=== PATIENT | female | born 1995 | race Caucasian/White ===

== ENCOUNTER 2019-04-30 09:46 | Emergency (ER) | payer OTHER ==
[2019-04-30 10:07] VITALS: BP 130/76
[2019-04-30] MEDS ORDERED: Metoclopramide 10 MG/2 ML SDV IVPUSH ONE (10:28)
[2019-04-30] MEDS ORDERED: HYDROmorphone 0.5 MG/0.5 ML Syringe IVPUSH ONE (10:29)
[2019-04-30] MEDS ORDERED: Ketorolac 30 MG/ML SDV IVPUSH SCH (10:30)
[2019-04-30] MEDS ORDERED: Dextrose 5%-0.9% NaCl 1,000 ML IV SCH (10:30)
--- NOTE | 2019-04-30 10:35 | EDM.PDOC ---
ED HPI GENERAL MEDICAL PROBLEM - General Chief Complaint: Headache Stated Complaint: HEADACHE Time Seen by Provider: 04/30/19 10:30 Source of Information: Reports: Patient History Limitations: Reports: No Limitations - History of Present Illness INITIAL COMMENTS - FREE TEXT/NARRATIVE: 24-year-old female presents to the ED with a generalized headache. She states she was at a wedding dance on Sunday, April 26 and did drink alcohol to excess. She developed a headache Sunday and this is persisted up until this time. No associated vomiting but some mild nausea. No change in visual acuity. She states she has chronic cervical neck pain and often sees the chiropractor on a monthly basis for adjustments. No fever no chills. Onset: Gradual Onset Date: 04/27/19 Duration: Day(s):, Constant, Waxing/Waning Location: Reports: Head Quality: Reports: Ache, Throbbing Severity: Moderate Improves with: Reports: None Worsens with: Reports: None Context: Denies: Activity, Exercise, Lifting, Sick Contact, Trauma, Other Associated Symptoms: Denies: Confusion, Chest Pain, Cough, Diaphoresis, Fever/ Chills, Headaches, Loss of Appetite, Malaise, Nausea/Vomiting, Rash, Seizure, Shortness of Breath, Syncope, Weakness Treatments VALIDATION TECHNICIAN: Reports: Acetaminophen Headache Pain Score (Numeric/FACES): 3 - Related Data Allergies Allergy/AdvReac Type Severity Reaction Status Date / Time No Known Allergies Allergy Verified 04/30/19 09:59 Home Meds: Home Meds Levothyroxine [Synthroid] 112 mcg PO ACBREAKFAST 04/30/19 [History] Past Medical History - Past Health History Medical/Surgical History: Denies Medical/Surgical History Cardiovascular History: Reports: None Respiratory History: Reports: None Gastrointestinal History: Reports: None Genitourinary History: Reports: None 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 (See Below) Other INSULATION BOARD COATER OPERATOR History: LEEP for HPV Musculoskeletal History: Reports: Neck Pain, Chronic Neurological History: Reports: Migraines Psychiatric History: Reports: None Endocrine/Metabolic History: Reports: Hypothyroidism, Obesity/BMI 30+ Hematologic History: Reports: None Immunologic History: Reports: None Oncologic (Cancer) History: Reports: None Dermatologic History: Reports: None - Infectious Disease History Infectious Disease History: Reports: Chicken Pox - Past Surgical History HEENT Surgical History: Reports: LASIK, Oral Surgery, Tonsillectomy Social & Family History - Family History Family Medical History: Noncontributory HEENT: Reports: Impaired Vision Cardiac: Reports: Heart Valve Replacement, [place] Respiratory: Reports: None GI: Reports: None : Reports: None OBGYN: Reports: None Musculoskeletal: Reports: Neck Pain, Chronic, Other (See Below) Endocrine/Metabolic: Reports: Hypothyroidism Oncologic: Reports: Renal - Tobacco Use Smoking Status *Q: Never Smoker - Caffeine Use Caffeine Use: Reports: Coffee - Recreational Drug Use Recreational Drug Use: No - Living Situation & Occupation Living situation: Reports: Single, with Significant Other Occupation: Employed ED ROS GENERAL - Review of Systems Review Of Systems: See Below Constitutional: Reports: No Symptoms HEENT: Reports: No Symptoms Respiratory: Reports: No Symptoms Cardiovascular: Reports: No Symptoms Endocrine: Reports: No Symptoms GI/Abdominal: Reports: No Symptoms : Reports: No Symptoms Musculoskeletal: Reports: No Symptoms Skin: Reports: No Symptoms Neurological: Reports: No Symptoms Psychiatric: Reports: No Symptoms Hematologic/Lymphatic: Reports: No Symptoms Immunologic: Reports: No Symptoms - Physical Exam Exam: See Below Exam Limited By: No Limitations General Appearance: Alert, WD/WN, Anxious, Mild Distress, Other (Patient is quite anxious as she visited with a virtual Dr. on Internet and was told that she may have meningitis and that she should seek medical care. Patient has no signs or symptoms of meningitis and was reassured in this regard.) Eye Exam: Bilateral Eye: Normal Inspection, PERRL Throat/Mouth: Normal Inspection, Normal Lips, Normal Teeth, Normal Oropharynx Head Exam: Atraumatic, Normocephalic Neck: Normal Inspection, Supple, Non-Tender, Full Range of Motion. No: Lymphadenopathy (L), Lymphadenopathy (R) Respiratory/Chest: No Respiratory Distress, Lungs Clear, Normal Breath Sounds Cardiovascular: Normal Peripheral Pulses, No Edema, No Gallop, No Murmur, No Rub , Tachycardia (Resting tachycardia of 130/m which came down to 111 at this time. ) GI/Abdominal: Normal Bowel Sounds, Soft, Non-Tender, No Organomegaly, No Abnormal Bruit, No Mass, Pelvis Stable Neuro Exam (Abbreviated): Alert, Oriented, CN II-XII Intact, Normal Cognition, Normal Gait, No Motor/Sensory Deficits Extremities: Normal Inspection, Normal Range of Motion, Non-Tender, No Pedal Edema, Normal Capillary Refill Psychiatric: Normal Affect, Normal Mood Skin Exam: Warm, Dry, Intact, Normal Color, No Rash Course - Vital Signs Last Recorded V/S: Last Vital Signs Temp 36.2 C 04/30/19 10:05 Pulse 137 H 04/30/19 10:05 Resp 18 04/30/19 10:05 BP 130/76 04/30/19 10:05 Pulse Ox 100 04/30/19 10:05 - Orders/Labs/Meds Orders: Active Orders 24 hr Category Date Time Status Dextrose 5%-0.9% NaCl [Dextrose 5%-Normal Saline] 1,000 Med 04/30/19 10:30 Active ml IV ASDIRECTED Ketorolac [Toradol] Med 04/30/19 10:30 Active 30 mg IVPUSH ONETIME Medication Orders Dextrose/Sodium Chloride (Dextrose 5%-Normal Saline) 1,000 mls @ 999 mls/hr IV ASDIRECTED HECTOR Last Admin: 04/30/19 10:40 Dose: 999 mls/hr Ketorolac Tromethamine (Toradol) 30 mg IVPUSH ONETIME HECTOR Last Admin: 04/30/19 10:39 Dose: 30 mg Meds: Medications Generic Name Dose Route Start Last Admin Trade Name Freq PRN Reason Stop Dose Admin Dextrose/Sodium Chloride 1,000 mls @ 999 mls/hr 04/30/19 10:30 04/30/19 10:40 Dextrose 5%-Normal Saline IV 999 mls/hr ASDIRECTED HECTOR Administration Ketorolac Tromethamine 30 mg 04/30/19 10:30 04/30/19 10:39 Toradol IVPUSH 30 mg ONETIME HECTOR Administration Discontinued Medications Generic Name Dose Route Start Last Admin Trade Name Freq PRN Reason Stop Dose Admin Hydromorphone HCl 0.5 mg 04/30/19 10:29 04/30/19 10:40 Dilaudid IVPUSH 04/30/19 10:30 0.5 mg ONETIME ONE Administration Metoclopramide HCl 7.5 mg 04/30/19 10:28 04/30/19 10:38 Reglan IVPUSH 04/30/19 10:29 7.5 mg ONETIME ONE Administration - Radiology Interpretation Free Text/Narrative:: 24-year-old female presents to the ED with a generalized headache. Said the headache for the last 3-1/2 days. Associated mild nausea but no vomiting. She states she can eat okay. She presents with a tachycardia of 1 37/m. She states she visited with silvia rivera which means Internet Dr. hill toward her that she may have meningitis which of course provoked panic and the patient. Patient has no signs or symptoms of meningitis. She does have diffuse tenderness on palpation throughout the cervical neck bones and paraspinal musculature which is likely the cause of her tension-type headache. Neuro exam is completely normal. Plan IV normal saline at open. Given Toradol 30 mg IV and Dilaudid 0.5mg with Reglan 7.5 mg IV for pain relief. - Re-Assessments/Exams Free Text/Narrative Re-Assessment/Exam: 04/30/19 11:12 headache is much improved. Heart rate is slowly coming down Still 107. She's reports that she has had Holter monitor the past because of tachyca and always runs at a little higher rate than normal. No abnormalities were otherwise identified on the Holter monitor. Will give her the remainder of the liter of IV fluids Departure - Departure Time of Disposition: 11:40 Disposition: Home, Self-Care 01 Condition: Fair Clinical Impression: Tension-type headache Headache Qualifiers: Headache type: unspecified Headache chronicity pattern: acute headache Intractability: not intractable Qualified Code(s): R51 - Headache - Discharge Information *PRESCRIPTION DRUG MONITORING PROGRAM REVIEWED*: Not Applicable *COPY OF PRESCRIPTION DRUG MONITORING REPORT IN PATIENT MONI: Not Applicable Instructions: Tension Headache, Adult, [id number] Referrals: Francisca Hameed PA-C [Primary Care Provider] - Forms: ED Department Discharge Additional Instructions: Evaluation the emergency room today in regards to a diffuse headache that you' ve had for the last 2-1/2-3 days. Neuro exam is otherwise completely normal. No associated fever chills or vomiting. Mild intermittent nausea reported. Heart rate was in the 130s when you came into the ED due to apprehension after being told on the Internet that you may have meningitis. You have no signs or symptoms of meningitis. Current headache is tension type in origin and is most likely coming from your neck. You were treated in the ED with IV fluids and medication Toradol 30 mg with Reglan 7.5 mg and Dilaudid 0.5 mg for headache relief. Continue Motrin 60 mg every 6 hours needed for inflammation in your neck and follow-up with chiropractor when able. - My Orders Last 24 Hours: My Active Orders 04/30/19 10:30 Dextrose 5%-0.9% NaCl [Dextrose 5%-Normal Saline] 1,000 ml IV ASDIRECTED Ketorolac [Toradol] 30 mg IVPUSH ONETIME - Assessment/Plan Last 24 Hours: My Active Orders 04/30/19 10:30 Dextrose 5%-0.9% NaCl [Dextrose 5%-Normal Saline] 1,000 ml IV ASDIRECTED Ketorolac [Toradol] 30 mg IVPUSH ONETIME
== END 2019-04-30 11:50 | disposition home or self-care (01) ==
LOC: JD.ED 09:46
DX: G44.209 Tension-type headache, unspecified, not intractable (principal)
CPT/HCPCS: 96361; 96374; 96375; 99283; J1170; J1885; J2765; J7042; 99284

== ENCOUNTER 2022-03-27 16:35 | Inpatient (IN) | payer OTHER ==
[2022-03-27] MEDS ORDERED: Ondansetron 4 MG/2 ML SDV IVPUSH PRN (16:38)
[2022-03-27] MEDS ORDERED: Sodium Chloride 0.9% 10 ML Syringe FLUSH PRN (16:38)
[2022-03-27] MEDS ORDERED: Nalbuphine HCl 10 MG/ 1ML Amp IVPUSH PRN (16:38)
[2022-03-27] MEDS ORDERED: Oxytocin/Lactated Ringers 10 UNIT/1,000 ML BAG IV SCH ×2 (16:45)
[2022-03-27] MEDS: Misoprostol 25 MCG (1/4 of 100 MCG) Tab VAG PRN ×2 (17:54→22:11)
[2022-03-27] MEDS ORDERED: fentaNYL 100 MCG/2 ML SDV EPIDUR PRN (20:57)
[2022-03-27] MEDS ORDERED: diphenhydrAMINE 50 MG/ML SDV IVPUSH PRN (20:57)
[2022-03-27] MEDS ORDERED: ePHEDrine 50 MG/ML SDV IVPUSH PRN (20:57)
[2022-03-27] MEDS: Sodium Chloride 0.9% 10 ML Syringe FLUSH SCH (23:42)
[2022-03-28] MEDS ORDERED: Bupivacaine 0.25% 10 ML SDV ONE
[2022-03-28] MEDS ORDERED: Misoprostol 200 MCG Tab ONE ×3
[2022-03-28] MEDS ORDERED: Methylergonovine 0.2 MG/1 ML Amp ONE
[2022-03-28] MEDS: Misoprostol 25 MCG (1/4 of 100 MCG) Tab VAG PRN (03:15)
[2022-03-28] MEDS ORDERED: Levothyroxine 112 MCG Tab PO SCH (06:00)
[2022-03-28] MEDS: Lactated Ringers 1,000 ML IV SCH ×4 (07:22→23:30)
[2022-03-28] MEDS: Bupivacaine/fentaNYL/NS 100 ML Bag EPIDUR PRN ×2 (14:04→21:20)
[2022-03-28] MEDS ORDERED: Oxytocin/Lactated Ringers 20 UNIT/1,000 ML BAG IV SCH (18:00)
[2022-03-28] MEDS: Sodium Chloride 0.9% 10 ML Syringe FLUSH SCH (19:18)
[2022-03-28] MEDS ORDERED: Carboprost Tromethamine 250 MCG/1 ML Amp ONE (22:30)
[2022-03-28] MEDS ORDERED: Methylergonovine 0.2 MG/1 ML Amp IM STA (22:55)
[2022-03-28] MEDS ORDERED: Misoprostol 200 MCG Tab PO STA (22:55)
[2022-03-28] MEDS ORDERED: Carboprost Tromethamine 250 MCG/1 ML Amp IM ONE (22:55)
[2022-03-28] MEDS ORDERED: ceFAZolin 2 GM in Sodium Chloride 0.9% 50 ML IV ONE (22:56)
[2022-03-28] MEDS ORDERED: Witch Hazel Medicated Pads 40/Jar TOP PRN (23:58)
[2022-03-28] MEDS ORDERED: Docusate Sodium 100 MG Cap PO PRN (23:58)
[2022-03-28] MEDS ORDERED: Acetaminophen 325 MG Tab PO PRN (23:58)
[2022-03-28] MEDS ORDERED: Benzocaine/Menthol 20%-0.5% Spray 78 GM Cannister TOP PRN (23:58)
[2022-03-29] MEDS: Ibuprofen 600 MG Tab PO PRN ×2 (00:30→09:50)
[2022-03-29] MEDS: Sodium Chloride 0.9% 10 ML Syringe FLUSH SCH (03:30)
[2022-03-30] MEDS: Ibuprofen 600 MG Tab PO PRN (00:25)
[2022-03-30 17:10] VITALS: BP 122/86; PULSE 80
== END 2022-03-30 17:00 | disposition home or self-care (01) | DRG 806 ==
LOC: JD.OBCHECK 16:35 → INTOOBSV 16:40 → JD.OB 16:40 → OBSVTOIN 03-28 22:18 → JD.OB 03-28 22:19
PROVIDERS: ADMIT Obstetrics & Gynecology; ATTEND Obstetrics & Gynecology
PROC: 10E0XZZ Delivery of Products of Conception, External Approach (ICD-10-PCS; principal; 2022-03-28)
PROC: 10907ZC Drainage of Amniotic Fluid, Therapeutic from Products of Conception, Via Natural or Artificial Opening (ICD-10-PCS; 2022-03-28)
PROC: 3E0P7VZ Introduction of Hormone into Female Reproductive, Via Natural or Artificial Opening (ICD-10-PCS; 2022-03-28)
PROC: 3E033VJ Introduction of Other Hormone into Peripheral Vein, Percutaneous Approach (ICD-10-PCS; 2022-03-28)
PROC: 3E0R3BZ Introduction of Anesthetic Agent into Spinal Canal, Percutaneous Approach (ICD-10-PCS; 2022-03-28)
PROC: 0HQ9XZZ Repair Perineum Skin, External Approach (ICD-10-PCS; 2022-03-28)
PROC: 00HU33Z Insertion of Infusion Device into Spinal Canal, Percutaneous Approach (ICD-10-PCS; 2022-03-28)
PROC: 3E0234Z Introduction of Serum, Toxoid and Vaccine into Muscle, Percutaneous Approach (ICD-10-PCS; 2022-03-29)
DX: O13.4 Gestational [pregnancy-induced] hypertension without significant proteinuria, complicating childbirth (principal); O99.354 Diseases of the nervous system complicating childbirth; Z37.0 Single live birth; O66.0 Obstructed labor due to shoulder dystocia; O72.1 Other immediate postpartum hemorrhage; O99.284 Endocrine, nutritional and metabolic diseases complicating childbirth; E03.9 Hypothyroidism, unspecified; G43.909 Migraine, unspecified, not intractable, without status migrainosus; O70.0 First degree perineal laceration during delivery; O69.81X0 Labor and delivery complicated by cord around neck, without compression, not applicable or unspecified; Z86.16 Personal history of COVID-19; O99.214 Obesity complicating childbirth; Z3A.39 39 weeks gestation of pregnancy; Z23 Encounter for immunization
CPT/HCPCS: 01967; 36415; 51701; 59025; 59409; 82565; 82570; 84156; 84450; 84460; 85027; 86592; 86850; 86900; 86901; A9270-GY; C1726; J0690; J2210; J2590; J3010; J3490; J7120